=== PATIENT | female | born 1980 | race Caucasian/White ===

== ENCOUNTER → 2020-08-04 | Day surgery (SDC) | payer OTHER ==
[~2020-08-04] MED LIST: BENTYL10 MG PO; BETAPACE80 MG PO; BUSPIRONE HCL15 MG PO; CATAPRES0.1 MG PO; CLARITIN10 MG PO; DIGITEK125 MCG PO; DILAUDID2 MG PO; EFFEXOR XR150 MG PO; ESTRACE1 MG PO; IMDUR 30MG TABL30 MG PO; INTUNIV1 MG PO; KETOROLAC TROME10 MG PO; MEDROL 4MG DOSEP4 MG PO; NITROGLYCERIN0.4 MG SL; NORVASC2.5 MG PO; OMEGA-3 ACID ETH1 GM PO; PHENERGAN25 M1 PO; PROAMATINE5 MG PO; PROCARDIA10 MG PO; PROGESTERONE100 MG PO; PROTONIX 40MG T40 MG PO; RANEXA500 MG PO; ROBAXIN500 MG PO; SYNTHROID25 MCG PO; VENLAFAXINE HC150 MG PO
[2020-08-04 11:08] LABS: HCT 39.5 % (37.0-47.0); HGB 13.2 g/dl (12.5-16.0); MCHC 33.4 g/dL (32.0-36.0); MCV 89.8 fL (78.0-100.0); MPV 11.3 fL (6.0-9.5); RBC 4.4 M/uL (4.20-5.40); RDW 12.7 % (11.5-14.0); WBC 8.1 K/uL (4.0-10.5)
[2020-08-04 11:22] LABS: ALBUMIN 3.6 g/dL (3.4-5.0); BILIRUBIN - TOTAL 0.4 mg/dL (0.2-1.0); BUN/CREAT RATIO (CALC) 11.2 RATIO; CREATININE 0.8 mg/dL (0.51-0.95); GLOBULIN (CALCULATION) 3.2 g/dL; TOTAL PROTEIN 6.8 g/dL (6.4-8.2)
== END | disposition home or self-care (01) ==
LOC: FAS 09:42
PROVIDERS: Surgery
DX: K81.1 Chronic cholecystitis (principal); K66.0 Peritoneal adhesions (postprocedural) (postinfection); M19.90 Unspecified osteoarthritis, unspecified site; M85.80 Other specified disorders of bone density and structure, unspecified site; I11.0 Hypertensive heart disease with heart failure; I50.9 Heart failure, unspecified; I95.1 Orthostatic hypotension; F41.9 Anxiety disorder, unspecified; E78.00 Pure hypercholesterolemia, unspecified; I49.5 Sick sinus syndrome; I47.1 Supraventricular tachycardia; Z87.891 Personal history of nicotine dependence; Z79.899 Other long term (current) drug therapy; Z88.1 Allergy status to other antibiotic agents; Z88.5 Allergy status to narcotic agent; Z88.8 Allergy status to other drugs, medicaments and biological substances; Z91.048 Other nonmedicinal substance allergy status; Z95.810 Presence of automatic (implantable) cardiac defibrillator
CPT/HCPCS: 36415; 74300; 80053; C1758; J1170; J2250; J2710; J3010; J7120; Q9967

== ENCOUNTER 2020-10-25 21:22 | Inpatient (IN) | payer OTHER ==
[~2020-10-25 21:22] MED LIST changes: -MEDROL 4MG DOSEP4 MG PO; -ROBAXIN500 MG PO
[2020-10-25 22:12] LABS: BASOPHIL 0.6 % (0-2); EOSINOPHIL 0 % (0-5); HCT 41.2 % (37.0-47.0); HGB 14.3 g/dl (12.5-16.0); LYMPHOCYTE 22.2 % (15-48); MCH 30.9 pg (25.0-31.0); MCHC 34.7 g/dL (32.0-36.0); MONOCYTE 10.3 % (0-12); MPV 11.1 fL (6.0-9.5); NEUTROPHIL 66.5 % (41-80); NRBC 0; PLT 199 K/uL (150-400); RBC 4.63 M/uL (4.20-5.40); RDW 13.2 % (11.5-14.0)
[2020-10-25 22:25] LABS: ALBUMIN 4.4 g/dL (3.4-5.0); BILIRUBIN - TOTAL 0.4 mg/dL (0.2-1.0); BUN/CREAT RATIO (CALC) 13.7 RATIO; CREATININE 0.95 mg/dL (0.51-0.95); GLOBULIN (CALCULATION) 3.4 g/dL; POTASSIUM 3.9 mmol/L (3.5-5.1); TOTAL PROTEIN 7.8 g/dL (6.4-8.2)
[2020-10-26 02:09] LABS: BILIRUBIN NEGATIVE (NEGATIVE); BLOOD NEGATIVE Ery/uL (NEGATIVE); CLARITY CLEAR (CLEAR); COLOR YELLOW (YELLOW); GLUCOSE (U) NORMAL (NORMAL); LEUKOCYTES TRACE Leu/uL (NEGATIVE); NITRITE NEGATIVE (NEGATIVE); PROTEIN NEGATIVE (NEGATIVE); SPECIFIC GRAVITY 1.015 (1.001-1.030); UROBILINOGEN 0.2 mg/dL (0.2-1.0); pH 7.5 (5.0-9.0)
[2020-10-26 02:12] LABS: AMPHETAMINES NEGATIVE (NEGATIVE); BARBITURATES NEGATIVE (NEGATIVE); ECSTASY (MDMA) NEGATIVE (NEGATIVE); MARIJUANA (THC) POSITIVE (NEGATIVE); METHADONE NEGATIVE (NEGATIVE); OPIATES NEGATIVE (NEGATIVE); OXYCODONE NEGATIVE (NEGATIVE)
[2020-10-26 02:15] LABS: SQUAMOUS EPITHELIAL CELLS RARE; URINARY WBC RARE
[2020-10-26 02:21] LABS: C-REACTIVE PROTEIN 0.2 mg/dL (<=0.90)
[2020-10-26 05:34] LABS: BASOPHIL 0.8 % (0-2); EOSINOPHIL 0 % (0-5); HGB 13.1 g/dl (12.5-16.0); LYMPHOCYTE 22.6 % (15-48); MCH 30.8 pg (25.0-31.0); MCHC 34.5 g/dL (32.0-36.0); MCV 89.2 fL (78.0-100.0); MONOCYTE 8.3 % (0-12); MPV 11.1 fL (6.0-9.5); NEUTROPHIL 67.9 % (41-80); NRBC 0; PLT 156 K/uL (150-400); RBC 4.26 M/uL (4.20-5.40); WBC 7.9 K/uL (4.0-10.5)
[2020-10-26 05:59] LABS: BUN/CREAT RATIO (CALC) 13.4 RATIO; CREATININE 0.82 mg/dL (0.51-0.95); MAGNESIUM 1.8 mg/dL (1.8-2.4); POTASSIUM 3.7 mmol/L (3.5-5.1)
--- NOTE | 2020-10-26 13:57 | NUR ---
GET ISSA FOR A FREE T4 ORDER THAT STATED FOR A NORMAL OR LESS THAN NORMAL FREE T4 TO BEGIN LEVOTHYROXINE 75MCG PO QDAY. FREE T4 CAME BACK AT 0.[address] SMALLWOOD IN REGARDS TO NEW MEDICATION ORDERS, DR SMALLWOOD CONFIRMED TO START NEW ORDER.
[2020-10-27 06:23] LABS: BUN/CREAT RATIO (CALC) 9.9 RATIO; CREATININE 0.91 mg/dL (0.51-0.95); POTASSIUM 4.5 mmol/L (3.5-5.1)
[2020-10-28 06:33] LABS: BUN/CREAT RATIO (CALC) 8.6 RATIO; CREATININE 0.93 mg/dL (0.51-0.95); POTASSIUM 4.1 mmol/L (3.5-5.1)
--- NOTE | 2020-10-28 09:20 | NUR ---
THIS RN NOTIFIED BY GENIE MERRILL THAT PATIENT BATHROOM CALL LIGHT WAS RINGING. WHEN TECHNICAL ACCOUNT EXECUTIVE ENTERED BATHROOM, PATIENT FOUND SITTING ON FLOOR. PATIENT DENIED INJURT TO TECHNICAL ACCOUNT EXECUTIVE AND TECHNICAL ACCOUNT EXECUTIVE ASSISTED PATIENT BACK TO BED. THIS RN ASSESSED PATIENT PHYSICALLY AND NEUROLOGICALLY. ASSESSMENTS NEGATIVE. WHEN ASKED WHAT HAPPENED, PATIENT STATES, "WHEN I STOOD UP, I GOT DIZZY AND BLACKED OUT. I DID NOT HIT MY HEAD. I THINK I SLID DOWN THE WALL." PATIENT DENIES ANY INJURY RELATED TO FALL. MD NOTIFIED, PROJECT CREW WORKER, AND DIGITAL ASSET MANAGER NOTIFIED.
--- NOTE | 2020-10-29 00:49 | NUR ---
2300: PT C/O CHEST PAIN 03/16. Abdi DIAS PRODUCT EXPERT NOTIFIED OF CHEST PAIN. ORDERS RECIEVED; SEE EMR.
--- NOTE | 2020-10-29 00:51 | NUR ---
2335: Abdi DIAS AMMONIA REFRIGERATION TECHNICIAN NOTIFIED OF PT'S CHEST PAIN OF 8/10 AFTER NTG SL X 1. ORDERS RECEIVED SEE EMR.
--- NOTE | 2020-10-29 05:23 | NUR ---
0030: PT ASLEEP. NO DISTRESS NOTED.
[2020-10-29 05:42] LABS: BASOPHIL 0.7 % (0-2); HCT 40.3 % (37.0-47.0); HGB 13.5 g/dl (12.5-16.0); LYMPHOCYTE 25.2 % (15-48); MCH 30.1 pg (25.0-31.0); MCHC 33.5 g/dL (32.0-36.0); MONOCYTE 10.3 % (0-12); MPV 11.2 fL (6.0-9.5); NEUTROPHIL 61.5 % (41-80); NRBC 0; PLT 159 K/uL (150-400); RBC 4.48 M/uL (4.20-5.40); RDW 13.2 % (11.5-14.0); WBC 7.5 K/uL (4.0-10.5)
[2020-10-29 06:09] LABS: ALBUMIN 3.5 g/dL (3.4-5.0); BILIRUBIN - TOTAL 0.4 mg/dL (0.2-1.0); BUN/CREAT RATIO (CALC) 12.6 RATIO; CREATININE 0.95 mg/dL (0.51-0.95); MAGNESIUM 1.8 mg/dL (1.8-2.4); POTASSIUM 4.2 mmol/L (3.5-5.1); TOTAL PROTEIN 6.5 g/dL (6.4-8.2)
--- NOTE | 2020-10-29 09:47 | NUR ---
10/29/20 Ms. Lake will be discharged today. No discharge planning needs are anticipated. Social Work consult was completed.
[2020-10-29 11:02] LABS: ALBUMIN 3.7 g/dL (3.4-5.0); ALKALINE PHOSHATASE 163 U/L (46-116); ALT 320 U/L (14-59); AST 137 U/L (15-37); BILIRUBIN - TOTAL 0.4 mg/dL (0.2-1.0); BUN 12 mg/dL (7-18); BUN/CREAT RATIO (CALC) 13.8 RATIO; CHLORIDE 102 mmol/L (98-107); CO2 (BICARBONATE) 29 mmol/L (21-32); CREATININE 0.87 mg/dL (0.51-0.95); GLOBULIN (CALCULATION) 3.2 g/dL; GLUCOSE 120 mg/dL (74-106); POTASSIUM 3.9 mmol/L (3.5-5.1); TOTAL PROTEIN 6.9 g/dL (6.4-8.2)
[2020-10-29 11:06] LABS: ACETAMINOPHEN (TYLENOL) < 2.0 ug/mL (10.0-30.0)
[2020-10-29 12:32] LABS: GGT (GAMMA GT) 112 U/L (5-55); LDH 318 U/L (81-234)
[2020-10-29 17:27] LABS: BILIRUBIN NEGATIVE (NEGATIVE); BLOOD NEGATIVE Ery/uL (NEGATIVE); CLARITY CLEAR (CLEAR); COLOR YELLOW (YELLOW); GLUCOSE (U) NORMAL (NORMAL); LEUKOCYTES NEGATIVE Leu/uL (NEGATIVE); NITRITE NEGATIVE (NEGATIVE); PROTEIN NEGATIVE (NEGATIVE); UROBILINOGEN 0.2 mg/dL (0.2-1.0)
[2020-10-29 17:35] LABS: SQUAMOUS EPITHELIAL CELLS RARE; URINARY WBC RARE
[2020-10-30 06:44] LABS: ALBUMIN 3.4 g/dL (3.4-5.0); BILIRUBIN - TOTAL 0.4 mg/dL (0.2-1.0); BUN/CREAT RATIO (CALC) 11.6 RATIO; CREATININE 0.86 mg/dL (0.51-0.95); GLOBULIN (CALCULATION) 3.2 g/dL; POTASSIUM 3.8 mmol/L (3.5-5.1); TOTAL PROTEIN 6.6 g/dL (6.4-8.2)
[2020-10-30 07:07] LABS: HBSAG SCREEN Negative (Negative); HEP A AB, IGM Negative (Negative); HEP B CORE AB, IGM Negative (Negative); HEP B CORE AB, TOT Negative (Negative); HEP C VIRUS AB <0.1 (0.0-0.9)
[2020-10-31 05:09] LABS: IMMUNOGLOBULIN A, QN, SERUM 158 mg/dL (87-352); IMMUNOGLOBULIN G, QN, SERUM 742 mg/dL (586-1602); IMMUNOGLOBULIN M, QN, SERUM 51 mg/dL (26-217)
== END 2020-10-30 13:40 | disposition other institution (70) | DRG 313 ==
LOC: FER 21:22 → FMS 10-26 00:10
PROVIDERS: Allergy & Immunology Allergy; Emergency Medicine; Internal Medicine; Nurse Practitioner; ADMIT Internal Medicine
DX: R07.89 Other chest pain (principal); F45.8 Other somatoform disorders; R74.01 Elevation of levels of liver transaminase levels; E03.9 Hypothyroidism, unspecified; Z20.822 Contact with and (suspected) exposure to COVID-19; R00.2 Palpitations; I49.5 Sick sinus syndrome; G89.4 Chronic pain syndrome; N30.10 Interstitial cystitis (chronic) without hematuria; Z95.0 Presence of cardiac pacemaker; Z88.8 Allergy status to other drugs, medicaments and biological substances; Z88.6 Allergy status to analgesic agent; Z96.82 Presence of neurostimulator; Z98.890 Other specified postprocedural states
CPT/HCPCS: 36415; 71045; 72170; 76705; 80048; 80053; 80061; 80074; 80162; 80305; 81001; 82550; 82784; 82977; 83605; 83615; 83735; 83915; 84439; 84443; 84484; 85025; 86038; 86140; 86376; 86704; 86706; 86708; 86803; 87340; 93005; G0480; J1170; J1200; J1940; J2060; J2270; J2405; U0002

== ENCOUNTER 2020-11-19 15:44 | Emergency (ER) | payer OTHER ==
[2020-11-19 16:31] LABS: BASOPHIL 0.7 % (0-2); EOSINOPHIL 0.1 % (0-5); HCT 38.2 % (37.0-47.0); HGB 13.3 g/dl (12.5-16.0); LYMPHOCYTE 25.3 % (15-48); MCH 31.2 pg (25.0-31.0); MCHC 34.8 g/dL (32.0-36.0); MCV 89.7 fL (78.0-100.0); MONOCYTE 9.1 % (0-12); MPV 10.4 fL (6.0-9.5); NEUTROPHIL 63.4 % (41-80); NRBC 0; PLT 182 K/uL (150-400); RBC 4.26 M/uL (4.20-5.40); RDW 12.9 % (11.5-14.0); WBC 9.5 K/uL (4.0-10.5)
[2020-11-19 16:45] LABS: ALBUMIN 3.9 g/dL (3.4-5.0); BILIRUBIN - TOTAL 0.4 mg/dL (0.2-1.0); BUN/CREAT RATIO (CALC) 15.2 RATIO; CREATININE 0.79 mg/dL (0.51-0.95); GLOBULIN (CALCULATION) 3.1 g/dL; POTASSIUM 4.2 mmol/L (3.5-5.1)
[2020-11-19 19:40] LABS: CORONAVIRUS 2019 SARS-COV-2 NEGATIVE (NEGATIVE); INFLUENZA A NAA NEGATIVE (NEGATIVE)
[2020-11-19] MEDS ORDERED: ROBAXIN500 MG PO (23:35)
[2020-11-19] MEDS ORDERED: MEDROL 4MG DOSEP4 MG PO (23:35)
== END 2020-11-19 23:58 | disposition home or self-care (01) ==
LOC: FER 15:44
PROVIDERS: Nurse Practitioner Family
DX: R07.9 Chest pain, unspecified (principal); R51.9 Headache, unspecified; R53.1 Weakness; Z87.19 Personal history of other diseases of the digestive system; Z95.0 Presence of cardiac pacemaker; Z88.8 Allergy status to other drugs, medicaments and biological substances; Z20.822 Contact with and (suspected) exposure to COVID-19
CPT/HCPCS: 36415; 70450; 71045; 72131; 80053; 84484; 85025; 93005; J1100; J1885; J2270; J2405; J2765; J2800; J2930; J7030; J7050; U0002

== ENCOUNTER 2020-12-12 14:38 | Emergency (ER) | payer OTHER ==
[~2020-12-12 14:38] MED LIST changes: +MEDROL 4MG DOSEP4 MG PO; +ROBAXIN500 MG PO
[2020-12-12 16:39] LABS: BASOPHIL 0.5 % (0-2); EOSINOPHIL 0 % (0-5); HCT 38.9 % (37.0-47.0); HGB 13.1 g/dl (12.5-16.0); LYMPHOCYTE 25.5 % (15-48); MCH 30.8 pg (25.0-31.0); MCHC 33.7 g/dL (32.0-36.0); MCV 91.5 fL (78.0-100.0); MONOCYTE 8.5 % (0-12); NEUTROPHIL 65.1 % (41-80); NRBC 0; PLT 152 K/uL (150-400); RBC 4.25 M/uL (4.20-5.40); RDW 13.1 % (11.5-14.0); WBC 5.5 K/uL (4.0-10.5)
[2020-12-12 16:52] LABS: INR 1.06 (0.9-1.2); PROTHROMBIN TIME 13.1 SECONDS (11.4-13.6); PTT 29.4 SECONDS (22.2-34.7)
[2020-12-12 19:16] LABS: BUN/CREAT RATIO (CALC) 11.8 RATIO; CREATININE 0.76 mg/dL (0.51-0.95); POTASSIUM 3.8 mmol/L (3.5-5.1)
[2020-12-12 23:16] LABS: CORONAVIRUS 2019 SARS-COV-2 NEGATIVE (NEGATIVE); INFLUENZA A NAA NEGATIVE (NEGATIVE)
== END 2020-12-12 23:00 | disposition other institution (70) ==
LOC: FER 14:38
PROVIDERS: Emergency Medicine
DX: R07.89 Other chest pain (principal); G89.29 Other chronic pain; I70.1 Atherosclerosis of renal artery; R55 Syncope and collapse; R06.02 Shortness of breath; R53.1 Weakness; R42 Dizziness and giddiness; Z88.5 Allergy status to narcotic agent; Z88.8 Allergy status to other drugs, medicaments and biological substances; Z95.0 Presence of cardiac pacemaker; Z86.79 Personal history of other diseases of the circulatory system; Z20.822 Contact with and (suspected) exposure to COVID-19
CPT/HCPCS: 36415; 71045; 71275; 80048; 83880; 84484; 85025; 85379; 85610; 85730; 93005; J1170; J1885; J2405; J7030; Q9967; U0002

== ENCOUNTER 2021-01-08 16:14 | Emergency (ER) | payer OTHER | END 2021-01-08 21:25 | disposition home or self-care (01) | LOC: FER 16:14 | DX: R51.9 Headache, unspecified (principal); Z95.0 Presence of cardiac pacemaker; Z88.5 Allergy status to narcotic agent; Z88.8 Allergy status to other drugs, medicaments and biological substances | CPT/HCPCS: 70450; J0780; J1885 ==

== ENCOUNTER → 2021-06-07 | Day surgery (SDC) | payer OTHER ==
[~2021-06-07] VITALS: Ht 157.5 cm; Wt 59.0 kg
[~2021-06-07] MED LIST changes: +INDOCIN SR75 MG PO; +ONDANSETRON ODT4 MG PO; +PEPCID AC20 MG PO; +TRANSDERM-SCOP1 EACH TD
[2021-06-07 08:16] LABS: HCT 35.5 % (37.0-47.0); HGB 12.2 g/dl (12.5-16.0); MCH 30.3 pg (25.0-31.0); MCHC 34.4 g/dL (32.0-36.0); MCV 88.1 fL (78.0-100.0); MPV 10.5 fL (6.0-9.5); RBC 4.03 M/uL (4.20-5.40); RDW 12.7 % (11.5-14.0); WBC 10.4 K/uL (4.0-10.5)
[2021-06-07 08:36] LABS: ALBUMIN 3.9 g/dL (3.4-5.0); BILIRUBIN - TOTAL 0.4 mg/dL (0.2-1.0); BUN/CREAT RATIO (CALC) 26.5 RATIO; CREATININE 0.98 mg/dL (0.51-0.95); GLOBULIN (CALCULATION) 3.4 g/dL; POTASSIUM 4.1 mmol/L (3.5-5.1); TOTAL PROTEIN 7.3 g/dL (6.4-8.2)
== END | disposition home or self-care (01) ==
LOC: FAS 07:39
PROVIDERS: Surgery
DX: I87.2 Venous insufficiency (chronic) (peripheral) (principal); I10 Essential (primary) hypertension; D64.9 Anemia, unspecified; K31.84 Gastroparesis; F43.10 Post-traumatic stress disorder, unspecified; Z79.899 Other long term (current) drug therapy; Z88.8 Allergy status to other drugs, medicaments and biological substances; Z88.5 Allergy status to narcotic agent; Z95.0 Presence of cardiac pacemaker; Z90.710 Acquired absence of both cervix and uterus; Z87.891 Personal history of nicotine dependence
CPT/HCPCS: 36415; 71045; 76000; 80053; C1788; J0690; J1644; J2250; J2405; J2704; J3010; J7120

== ENCOUNTER 2021-07-23 15:19 | Emergency (ER) | payer OTHER ==
[2021-07-23 17:30] LABS: BASOPHIL 0.9 % (0-2); EOSINOPHIL 0 % (0-5); HGB 12.6 g/dl (12.5-16.0); LYMPHOCYTE 22.2 % (15-48); MCH 31.2 pg (25.0-31.0); MCV 89.1 fL (78.0-100.0); MONOCYTE 8.2 % (0-12); MPV 11.1 fL (6.0-9.5); NEUTROPHIL 67.7 % (41-80); NRBC 0; PLT 183 K/uL (150-400); RBC 4.04 M/uL (4.20-5.40); RDW 13.1 % (11.5-14.0); WBC 8.8 K/uL (4.0-10.5)
[2021-07-23 17:40] LABS: BILIRUBIN - TOTAL 0.5 mg/dL (0.2-1.0); BUN/CREAT RATIO (CALC) 10.8 RATIO; CREATININE 0.74 mg/dL (0.51-0.95); POTASSIUM 3.7 mmol/L (3.5-5.1)
== END 2021-07-24 02:30 | disposition home or self-care (01) ==
LOC: FER 15:19
PROVIDERS: Emergency Medicine
DX: R07.9 Chest pain, unspecified (principal); R55 Syncope and collapse; I10 Essential (primary) hypertension; Z88.5 Allergy status to narcotic agent; Z88.8 Allergy status to other drugs, medicaments and biological substances; Z88.6 Allergy status to analgesic agent; Z87.891 Personal history of nicotine dependence
CPT/HCPCS: 36415; 70450; 71045; 72125; 80053; 84484; 85025; 93005; J1170; J1642; J1885; J2405; J2550; J7030; Q9967

== ENCOUNTER 2021-12-25 07:04 | Emergency (ER) | payer OTHER ==
[2021-12-25] MEDS ORDERED: DILAUDID2 M1 PO (12:46)
== END 2021-12-25 13:16 | disposition home or self-care (01) ==
LOC: FER 07:04
DX: R51.9 Headache, unspecified (principal); M54.12 Radiculopathy, cervical region; Z88.6 Allergy status to analgesic agent; Z88.5 Allergy status to narcotic agent; Z88.8 Allergy status to other drugs, medicaments and biological substances; Z87.891 Personal history of nicotine dependence
CPT/HCPCS: 70450; 72125; J1170; J1642; J2060; J2405

== ENCOUNTER 2022-02-18 10:01 | Emergency (ER) | payer OTHER ==
[~2022-02-18 10:01] MED LIST changes: +DILAUDID2 M1 PO
[2022-02-18 11:47] LABS: BASOPHIL 0.6 % (0-2); EOSINOPHIL 0 % (0-5); HCT 34.2 % (37.0-47.0); HGB 11.9 g/dl (12.5-16.0); LYMPHOCYTE 21.6 % (15-48); MCH 31.4 pg (25.0-31.0); MCHC 34.8 g/dL (32.0-36.0); MCV 90.2 fL (78.0-100.0); MONOCYTE 10.4 % (0-12); MPV 10.6 fL (6.0-9.5); NEUTROPHIL 64.9 % (41-80); NRBC 0; PLT 159 K/uL (150-400); RBC 3.79 M/uL (4.20-5.40); RDW 12.6 % (11.5-14.0); WBC 8.6 K/uL (4.0-10.5)
[2022-02-18 12:15] LABS: ALBUMIN 3.9 g/dL (3.4-5.0); BILIRUBIN - TOTAL 0.4 mg/dL (0.2-1.0); BUN/CREAT RATIO (CALC) 13.6 RATIO; CREATININE 0.81 mg/dL (0.51-0.95); GLOBULIN (CALCULATION) 2.9 g/dL; MAGNESIUM 1.9 mg/dL (1.8-2.4); TOTAL PROTEIN 6.8 g/dL (6.4-8.2)
[2022-02-18 14:29] LABS: BILIRUBIN NEGATIVE (NEGATIVE); BLOOD NEGATIVE Ery/uL (NEGATIVE); CLARITY CLEAR (CLEAR); COLOR YELLOW (YELLOW); GLUCOSE (U) NORMAL (NORMAL); LEUKOCYTES NEGATIVE Leu/uL (NEGATIVE); NITRITE NEGATIVE (NEGATIVE); PROTEIN NEGATIVE (NEGATIVE); UROBILINOGEN 0.2 mg/dL (0.2-1.0); pH 7.5 (5.0-9.0)
== END 2022-02-18 16:07 | disposition home or self-care (01) ==
LOC: FER 10:01
PROVIDERS: Emergency Medicine; Nurse Practitioner Family
DX: E86.0 Dehydration (principal); K31.84 Gastroparesis; R53.1 Weakness; Z28.310 Unvaccinated for COVID-19; Z87.891 Personal history of nicotine dependence; Z88.5 Allergy status to narcotic agent; Z91.09 Other allergy status, other than to drugs and biological substances
CPT/HCPCS: 36415; 80053; 81003; 83735; 85025; 87040; 93005; J1170; J2405; J7030; J7120

== ENCOUNTER 2022-02-20 15:55 | Emergency (ER) | payer OTHER ==
[2022-02-20 18:56] LABS: BASOPHIL 0.5 % (0-2); EOSINOPHIL 0 % (0-5); HCT 31.6 % (37.0-47.0); HGB 11.3 g/dl (12.5-16.0); LYMPHOCYTE 22.1 % (15-48); MCH 31.7 pg (25.0-31.0); MCHC 35.8 g/dL (32.0-36.0); MCV 88.8 fL (78.0-100.0); MPV 10.4 fL (6.0-9.5); NEUTROPHIL 68.6 % (41-80); NRBC 0; PLT 146 K/uL (150-400); RBC 3.56 M/uL (4.20-5.40); RDW 12.6 % (11.5-14.0); WBC 9.2 K/uL (4.0-10.5)
[2022-02-20 19:14] LABS: LACTIC ACID 1.1 mmol/L (0.4-1.9)
[2022-02-20 19:21] LABS: ALBUMIN 3.9 g/dL (3.4-5.0); BILIRUBIN - TOTAL 0.5 mg/dL (0.2-1.0); CREATININE 0.8 mg/dL (0.51-0.95); GLOBULIN (CALCULATION) 2.7 g/dL; POTASSIUM 3.8 mmol/L (3.5-5.1); TOTAL PROTEIN 6.6 g/dL (6.4-8.2)
[2022-02-20] MEDS ORDERED: MORPHINE SULFAT15 MG PO (22:45)
== END 2022-02-20 23:25 | disposition home or self-care (01) ==
LOC: FER 15:55
PROVIDERS: Emergency Medicine
DX: R10.9 Unspecified abdominal pain (principal); R11.2 Nausea with vomiting, unspecified; I10 Essential (primary) hypertension; Z79.899 Other long term (current) drug therapy; Z28.310 Unvaccinated for COVID-19
CPT/HCPCS: 36415; 80053; 83605; 83690; 85025; 93005; J1170; J1642; J2270; J2405; J7120; Q9967